=== PATIENT | female | born 2005 | race Caucasian/White ===

== ENCOUNTER 2025-07-10 13:16 | Emergency (ER) | payer OTHER, SELFPAY ==
[2025-07-10 13:28] VITALS: BP 116/66; PULSE 92; RESP 18; TEMP 36.8; O2SAT 100
--- OUTSIDE RECORDS SUMMARY | 2025-07-10 13:29 | XMS_ITS | Clinical Summary ---
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 Alk phos 58 40 - 130 Units/L [facility] ([place]) ALT 9 7 - 45 Units/L [facility] ([place]) AST 12 10 - 45 Units/L [facility] ([place]) Comment:Slightly Hemolyzed S pecimen Blood 05/17/2025 11:3 0 AM CDT 05/17/2025 11:35 AM CDT us [facility] BLOOD ORDERABLES Final Resu lt [facility] ([place]) 1 [facility] [place] [address] from Last 3 Months Insurance [facility] Care Teams Cheese Pancake Roller Relationship Specialty Start Date End Date Miscellaneous, Not In File PCP - General 05/17/25
--- OUTSIDE RECORDS SUMMARY | 2025-07-10 13:30 | XMS_ITS | Clinical Summary ---
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 Gender Identity Not on file Sexual Orientation Not on file Last Filed Vital Signs Vital Sign Reading Time Taken Comments Blood Pressure 120/78 10/30/2022 3:07 AM MOTION DESIGNER Pulse 71 10/30/2022 3:07 AM MOTION DESIGNER Temperature 36.8 C (98.3 F) 10/29/2022 8:13 PM MOTION DESIGNER Respiratory Rate 18 10/30/2022 3:07 AM MOTION DESIGNER Oxygen Saturation 100% 10/30/2022 3:07 AM MOTION DESIGNER Inhaled Oxygen Concentration - - Weight 67.1 kg (148 lb) 10/29/2022 6:03 PM MOTION DESIGNER Height 165.1 cm (5' 5) 10/29/2022 6:03 PM MOTION DESIGNER Body Mass Index 24.63 10/29/2022 6:03 PM MOTION DESIGNER Plan of Treatment Health Maintenance Due Date Last Done Comments Hepatitis C Virus (HCV) Screening 2003 Hepatitis B Immunization (3 of 3 - 3-dose series) 2003 2003, 2003 Human Papillomavirus (HPV) Immunization (1 - 3-dose series) 2018 Meningococcal B Immunization (1 of 2 - Standard) 2019 SARS-COV-2 Immunization ( season) 2024 02/17/2022, 09/30/2021 Influenza Immunization (#1) 2025 Respiratory Syncytial Virus (RSV) Immunization (Adult) (1 - 1-dose 75+ series) 2078 Pneumococcal Immunization Combined Aged Out 2003, 2003, 2003 No longer eligible based on patient's age to complete this topic DTaP/Tdap/Td Immunization Discontinued 2013, 05/29/2008, 2003, Additional history exists Meningococcal Immunization (ACWY) Aged Out 07/17/2014 No longer eligible based on patient's age to complete this topic TdaP Immunization Completed 07/17/2014 Rotavirus Immunization Aged Out No lo nger eligible based on patient's age to complete this topic Insurance [facility] Care Teams Laborer Cutting Tool Relationship Specialty Start Date End Date Loreto Shi MD [address] [place] [address] [place] [address] PCP - General Internal Medicine 10/29/22
--- NOTE | 2025-07-10 14:26 | ED_ITS ---
HPI - Dizziness General Chief Complaint: Dizziness Stated Complaint: Light Headness Source: patient Mode of arrival: ambulatory Limitations: no limitations History of Present Illness HPI Narrative: Patient presents for evaluation of dizziness. She is currently prescribed clomipramine 75mg daily, prazosin 3mg daily and trintellix 20mg. She typically takes her clomipramine at night. She took it last night and accidentally took it again this morning. She has experienced fairly constant dizziness. She typically has dizziness with positional changes on the medication but is concerned about the persistence of the dizziness that is not limited to positional changes. She contacted [employer] control and they advised there was nothing to do other than to monitor blood pressure. She was advised to come in for a BP check. She denies any other physical symptoms. Related Data Home Medications ?Medication ?Instructions ?Recorded ?Confirmed ?Last Taken ?Type clomipramine 25 mg capsule mg 07/10/25 Unknown Histor y fluconazole 150 mg tablet mg 07/10/25 Unknown History metronidazole 500 mg tablet mg 07/10/25 Unknown Histo ry prazosin 1 mg capsule mg 07/10/25 Unknown History vortioxetine 20 mg tablet mg 07/10/25 Unknown History (Trintellix) Allergies Allergy/AdvReac Type Severity Reaction Status Date / Time fluoxetine Allergy Unknown Verified 07/10/25 13:31 Review of Systems Review of Systems: CONSTITUTIONAL: Denies fever, chills, or sweats. EYES: Denies visual changes, redness, or discharge. ENT: Denies rhinorrhea, congestion, sore throat, or otalgia. CARDIOVASCULAR: Denies chest pain, palpitations, or edema. RESPIRATORY: Denies cough or dyspnea. GASTROINTESTINAL: Denies abdominal pain, nausea, vomiting, or diarrhea. GENITOURINARY: Denies dysuria or hematuria. SKIN: Denies rash or itching. MUSCULOSKELETAL: Denies back pain, joint pain, or myalgia. NEUROLOGIC: Reports dizziness. Denies headache, numbness, or weakness. PSYCHIATRIC: Denies anxiety or depression. [facility] Past Medical History Medical History Posttraumatic stress disorder Depression Anxiety Surgical History Surgical History History of elbow surgery Family History Family History Mother Family history non-contributory Social History Social History Alcohol intake: current Alcohol use details: rare, socially Substance use: current Substance use type: marijuana Gender identity (if verbalized by the patient): Female Spiritual care concerns: No Exam Narrative: GENERAL: Well-appearing, well-nourished, and in no acute distress. HEAD: Normocephalic, atraumatic. EYES: PERRLA and EOMI. ENT: Nares clear, no rhinorrhea or epistaxis. Mucous membranes moist. Oropharynx without tonsillar hypertrophy exudate or other lesions. Bilateral TMs pearly rubio nonbulging NECK: Supple. No adenopathy or masses. No carotid bruits or JVD CHEST: Clear to auscultation. No respiratory distress. No wheezes rales or rhonchi HEART: Regular rate and rhythm. No murmur heard. Normal peripheral pulses. ABDOMEN: Soft, nontender, nondistended, normal active bowel sounds. EXTREMITIES: Normal range of motion. No edema. SKIN: Warm, dry, no rash. NEURO: No focal deficits. Alert and oriented x3. PSYCH: Normal mood and affect. Course Course Emergency Course: This is a 20-year-old female who presented for evaluation of dizziness. There is no orthostasis on exam. She actually feels quite comfortable going home and has somebody that can see her company. Her symptoms should subside in the coming hours. She was advised to remain well hydrated and be conscientious of taking her medication at the same time every day. She should follow-up with her psychiatrist and primary care provider and go to the ER for syncope or worsening symptoms. Patient in agreement with plan of care. Level of Care: Express Care Visit Vital Signs Vital signs: Vital Signs Temperature 36.8 C 07/10/25 13:28 Pulse Rate 92 07/10/25 13:28 Respiratory Rate 18 07/10/25 13:28 Blood Pressure 116/66 07/10/25 13:28 Pulse Oximetry 100 07/10/25 13:28 Oxygen Delivery Room Air 07/10/25 13:28 Temperature 36.8 C 07/10/25 13:28 Pulse Rate 110 H 07/10/25 14:45 Respiratory Rate 18 07/10/25 13:28 Blood Pressure 101/64 07/10/25 14:45 Pulse Oximetry 100 07/10/25 13:28 Oxygen Delivery Room Air 07/10/25 13:28 Discharge Plan Discharge Clinical Impression: Dizziness, Unintentional misuse of medication Patient Disposition: Home Condition: Stable Instructions: Antibiotic Form, Dizziness (ED) Additional Instructions: PLEASE STAY WELL HYDRATED Patient Language: Sudanese Prescriptions: No Action fluconazole 150 mg tablet prazosin 1 mg capsule metronidazole 500 mg tablet clomipramine 25 mg capsule Trintellix 20 mg tablet Follow-up/Referrals: Butch Angel MD [Physician, Family Practice] Time of Disposition: 15:19
[2025-07-10 14:44] VITALS: BP 116/74; PULSE 72
[2025-07-10 14:45] VITALS: BP 101/64; BP 102/63; PULSE 110; PULSE 80
== END 2025-07-10 15:24 | disposition home or self-care (01) ==
PROVIDERS: Emergency Provider Nurse Practitioner
DX: R42 Dizziness and giddiness (principal); F15.90 Other stimulant use, unspecified, uncomplicated; F41.8 Other specified anxiety disorders
CPT/HCPCS: 99203; G0463